=== PATIENT | male | born 1955 | race Caucasian/White ===

== ENCOUNTER 2016-03-08 | Outpatient (CLI) | payer MEDICARE | END 2016-03-08 08:09 | disposition critical access hospital (66) | CPT/HCPCS: A0425; A0427 ==

== ENCOUNTER 2016-03-08 08:36 | Emergency (ER) | payer MEDICARE ==
[2016-03-08] MEDS ORDERED: ONDANSETRON 4 MG/2 ML VIAL IVP STA ×2 (09:21→15:57)
[2016-03-08] MEDS ORDERED: SODIUM CHLORIDE 0.9% 1,000 ML IV ONE (09:21)
[2016-03-08] MEDS ORDERED: HYDROmorphone 1 MG/ML SYRINGE IVP STA ×2 (09:21→12:37)
[2016-03-08] MEDS ORDERED: ONDANSETRON 4 MG/2 ML VIAL ONE ×2 (09:33→16:02)
[2016-03-08] MEDS ORDERED: HYDROmorphone 1 MG/ML SYRINGE ONE ×2 (09:33→12:42)
[2016-03-08] MEDS ORDERED: cefTRIAXone 1 GM in SODIUM CHLORIDE 0.9% MINIBAG 100 ML IV STA (10:46)
[2016-03-08] MEDS ORDERED: cefTRIAXone 1 GM VIAL ONE (11:02)
[2016-03-08] MEDS ORDERED: IOPAMIDOL-300 100 ML VIAL IVP ONE (13:12)
== END 2016-03-08 16:20 | disposition home or self-care (01) ==
DX: J18.9 Pneumonia, unspecified organism (principal); H66.003 Acute suppurative otitis media without spontaneous rupture of ear drum, bilateral; I95.9 Hypotension, unspecified; E11.9 Type 2 diabetes mellitus without complications; J44.9 Chronic obstructive pulmonary disease, unspecified; I10 Essential (primary) hypertension; E78.5 Hyperlipidemia, unspecified; F17.200 Nicotine dependence, unspecified, uncomplicated; Z79.01 Long term (current) use of anticoagulants; Z79.4 Long term (current) use of insulin; Z86.711 Personal history of pulmonary embolism; Z86.718 Personal history of other venous thrombosis and embolism
CPT/HCPCS: 36415; 71275; 74176; 80053; 81003; 83605; 83690; 84484; 85025; 85610; 87040; 93005; 93010; 96361; 96374; 96375; 96376; 99285; J1170; Q9967

== ENCOUNTER 2016-03-10 08:37 | Outpatient (CLI) | payer MEDICARE | END 2016-03-10 08:38 | disposition home or self-care (01) | DX: I26.99 Other pulmonary embolism without acute cor pulmonale (principal); Z79.01 Long term (current) use of anticoagulants ==

== ENCOUNTER 2016-03-24 08:40 | Outpatient (CLI) | payer MEDICARE | END 2016-03-24 08:41 | disposition home or self-care (01) | DX: I26.99 Other pulmonary embolism without acute cor pulmonale (principal); Z79.01 Long term (current) use of anticoagulants ==

== ENCOUNTER 2016-03-31 08:36 | Outpatient (CLI) | payer MEDICARE | END 2016-03-31 08:37 | disposition home or self-care (01) | DX: I26.99 Other pulmonary embolism without acute cor pulmonale (principal); Z79.01 Long term (current) use of anticoagulants ==

== ENCOUNTER 2016-04-21 08:31 | Outpatient (CLI) | payer MEDICARE | END 2016-04-21 08:32 | disposition home or self-care (01) | DX: I26.99 Other pulmonary embolism without acute cor pulmonale (principal); Z79.01 Long term (current) use of anticoagulants ==

== ENCOUNTER 2016-05-05 08:45 | Outpatient (CLI) | payer MEDICARE | END 2016-05-05 08:46 | disposition home or self-care (01) | DX: I26.99 Other pulmonary embolism without acute cor pulmonale (principal); Z79.01 Long term (current) use of anticoagulants ==

== ENCOUNTER 2016-05-26 08:25 | Outpatient (CLI) | payer MEDICARE | END 2016-05-26 08:26 | disposition home or self-care (01) | DX: I26.99 Other pulmonary embolism without acute cor pulmonale (principal); Z79.01 Long term (current) use of anticoagulants ==

== ENCOUNTER 2016-06-02 08:41 | Outpatient (CLI) | payer MEDICARE | END 2016-06-02 08:42 | disposition home or self-care (01) | DX: I26.99 Other pulmonary embolism without acute cor pulmonale (principal); Z79.01 Long term (current) use of anticoagulants ==

== ENCOUNTER 2016-06-16 08:42 | Outpatient (CLI) | payer MEDICARE | END 2016-06-16 08:43 | disposition home or self-care (01) | DX: I26.99 Other pulmonary embolism without acute cor pulmonale (principal); Z79.01 Long term (current) use of anticoagulants ==

== ENCOUNTER 2016-07-14 08:44 | Outpatient (CLI) | payer MEDICARE | END 2016-07-14 08:45 | disposition home or self-care (01) | LOC: LAB.F 08:44 | PROVIDERS: ATTEND Family Medicine | DX: I26.99 Other pulmonary embolism without acute cor pulmonale (principal) | CPT/HCPCS: 85610 ==

== ENCOUNTER 2016-08-18 08:23 | Outpatient (CLI) | payer MEDICARE | END 2016-08-18 08:24 | disposition home or self-care (01) | LOC: LAB.F 08:23 | PROVIDERS: ATTEND Family Medicine | DX: I26.99 Other pulmonary embolism without acute cor pulmonale (principal) | CPT/HCPCS: 85610 ==

== ENCOUNTER 2016-09-23 07:27 | Outpatient (CLI) | payer MEDICARE | END 2016-09-23 07:28 | disposition home or self-care (01) | LOC: LAB.F 07:27 | PROVIDERS: ATTEND Family Medicine | DX: I26.99 Other pulmonary embolism without acute cor pulmonale (principal) | CPT/HCPCS: 85610 ==

== ENCOUNTER 2016-10-15 15:05 | Outpatient (CLI) | payer OTHER, MEDICARE ==
[2016-10-15] MEDS ORDERED: IOPAMIDOL-300 100 ML VIAL IVP ONE (16:27)
--- NOTE | 2016-10-16 10:50 | CT Report ---
CT ANGIOGRAM CHEST: 10/15/2016 CLINICAL INDICATION: COPD, pulmonary embolism. COMPARISON: 03/08/2016 TECHNIQUE: Axial CT images of the chest were obtained with 100 mL Isovue-300 intravenously in pulmon cecilio arterial phase of enhancement. Sagittal and coronal 3D reconstructions were performed. In accordance with CT protocol optimization, one or more of the following dose reduction techniques w ere utilized for this exam: automated exposure control, adjustment of mA and/or KV based on patient size, or use of iterative reconstructive technique. FINDINGS: The heart and great vessels demonstrate atherosclerotic calcifications. No hilar or media stinal lymphadenopathy is present. There is no evidence of pulmonary embolus. The lungs demonstrate emphysematous changes. There are multiple subcentimeter pulmonary nodules in the upper lobes, new f rom previous. These may be infectious in etiology. Followup CT following antibiotic therapy is cate mmended to evaluate for resolution. The previously noted nodule in the superior segment of the left lower lobe has resolved. Atelectasis in the lingula appears unchanged, and patchy bibasilar atelecta sis is now also present. No effusion or pneumothorax is seen. Limited evaluation of upper abdominal structures demonstrates normal adrenal glands. Osseous structures demonstrate degenerative changes. IMPRESSION: 1. NO EVIDENCE OF PULMONARY EMBOLUS. 2. MULTIPLE SMALL UPPER LOBE PULMONARY NODULES, NEW FROM PREVIOUS, WHICH MAY BE INFECTIOUS IN ETIOLO GY. RESOLUTION OF PREVIOUSLY SEEN LEFT LOWER LOBE PULMONARY NODULE. FOLLOWUP CT FOLLOWING ANTIBIOTI C THERAPY IS RECOMMENDED TO EVALUATE FOR RESOLUTION. JOB #: [id number] EXT JOB #:[id number]
== END 2016-10-15 15:06 | disposition home or self-care (01) ==
LOC: DI 15:05
PROVIDERS: ATTEND Physician Assistant
DX: J44.9 Chronic obstructive pulmonary disease, unspecified (principal); R91.8 Other nonspecific abnormal finding of lung field
CPT/HCPCS: 71275; Q9967

== ENCOUNTER 2016-10-28 08:33 | Outpatient (CLI) | payer OTHER, MEDICARE | END 2016-10-28 08:34 | disposition home or self-care (01) | LOC: LAB.F 08:33 | PROVIDERS: ATTEND Family Medicine | DX: I26.99 Other pulmonary embolism without acute cor pulmonale (principal); Z79.01 Long term (current) use of anticoagulants | CPT/HCPCS: 85610 ==

== ENCOUNTER 2016-12-01 07:10 | Outpatient (CLI) | payer OTHER, MEDICARE | END 2016-12-01 07:11 | disposition home or self-care (01) | LOC: LAB.F 07:10 | PROVIDERS: ATTEND Family Medicine | DX: I26.99 Other pulmonary embolism without acute cor pulmonale (principal); Z79.01 Long term (current) use of anticoagulants | CPT/HCPCS: 85610 ==

== ENCOUNTER 2016-12-11 08:38 | Outpatient (CLI) | payer OTHER, MEDICARE ==
[~2016-12-11 08:38] MED LIST: IOPAMIDOL-300 100 ML VIAL ONE
[2016-12-11] MEDS ORDERED: IOPAMIDOL-300 100 ML VIAL IVP ONE (09:46)
--- NOTE | 2016-12-11 12:22 | CT Report ---
CT CHEST WITHOUT CONTRAST: 12/11/2016 CLINICAL INDICATION: Followup parenchymal nodules from previous scan of 10/15/2016. TECHNIQUE: Axial CT images of the chest were obtained without intravenous contrast, due to inability to obtain intravenous access. In accordance with CT protocol optimization, one or more of the following dose reduction techniques w ere utilized for this exam: automated exposure control, adjustment of mA and/or KV based on patient size, or use of iterative reconstructive technique. COMPARISON: 10/15/2016, 03/08/2016 FINDINGS: The heart and great vessels demonstrate mild atherosclerotic calcifications. No hilar or mediastinal lymphadenopathy is present. There has been interval decrease in size of the largest of t he parenchymal nodules, with the largest in the right upper lobe now measuring 4 mm, and the largest in the left upper lobe now measuring 4 mm. There has, however, been a significant increase in the nu mber of parenchymal nodules bilaterally. Some of them appear to demonstrate central lucency, compati ble with cavitation or necrosis. No focal infiltrate, effusion, or pneumothorax is present. Limited evaluation of upper abdominal structures demonstrates normal adrenal glands. Osseous structures dem onstrate degenerative changes. IMPRESSION: INTERVAL INCREASE IN NUMBER OF BILATERAL PULMONARY NODULES, DESPITE INTERVAL DECREASE IN SIZE OF THE LARGEST NODULES PRESENT IN THE UPPER LOBES, NOW WITH SOME CENTRAL LUCENCY IN SOME OF THE NODULES. DIFFERENTIAL CONSIDERATIONS WOULD INCLUDE METASTATIC DISEASE AND SEPTIC EMBOLI FROM RIGHT- SIDED ENDOCARDITIS/VALVULAR DISEASE. CORRELATION WITH ECHOCARDIOGRAPHY AND EVALUATION FOR A PRIMARY MALIGNANCY IS RECOMMENDED. JOB #: [id number] EXT JOB #:[id number]
== END 2016-12-11 08:39 | disposition home or self-care (01) ==
LOC: DI 08:38
PROVIDERS: ATTEND Physician Assistant
DX: R91.8 Other nonspecific abnormal finding of lung field (principal)
CPT/HCPCS: 71250; Q9967

== ENCOUNTER 2017-02-02 08:55 | Outpatient (CLI) | payer MEDICARE, OTHER | END 2017-02-02 08:56 | disposition home or self-care (01) | LOC: LAB.F 08:55 | PROVIDERS: ATTEND Family Medicine | DX: I26.99 Other pulmonary embolism without acute cor pulmonale (principal); Z79.01 Long term (current) use of anticoagulants | CPT/HCPCS: 85610 ==

== ENCOUNTER 2017-02-03 17:50 | Outpatient (CLI) | payer MEDICARE | END 2017-02-03 17:51 | disposition critical access hospital (66) | LOC: EMS 17:50 | PROVIDERS: ATTEND Surgery | DX: R00.2 Palpitations (principal) | CPT/HCPCS: A0425; A0429 ==

== ENCOUNTER 2017-03-03 08:12 | Outpatient (CLI) | payer MEDICARE | END 2017-03-03 08:13 | disposition home or self-care (01) | LOC: LAB.F 08:12 | PROVIDERS: ATTEND Physician Assistant | DX: I26.99 Other pulmonary embolism without acute cor pulmonale (principal); Z79.01 Long term (current) use of anticoagulants | CPT/HCPCS: 85610 ==

== ENCOUNTER 2017-04-06 09:22 | Outpatient (CLI) | payer OTHER, MEDICARE | END 2017-04-06 09:23 | disposition home or self-care (01) | LOC: LAB.F 09:22 | PROVIDERS: ATTEND Physician Assistant | DX: I26.99 Other pulmonary embolism without acute cor pulmonale (principal); Z79.01 Long term (current) use of anticoagulants | CPT/HCPCS: 85610 ==

== ENCOUNTER 2017-04-27 10:18 | Outpatient (CLI) | payer OTHER, MEDICARE | END 2017-04-27 10:19 | disposition home or self-care (01) | LOC: SC 10:18 | PROVIDERS: ATTEND Internal Medicine Pulmonary Disease | DX: G47.30 Sleep apnea, unspecified (principal); G47.10 Hypersomnia, unspecified; R06.83 Snoring; G47.8 Other sleep disorders | CPT/HCPCS: 99203; 99212 ==

== ENCOUNTER 2017-05-04 09:15 | Outpatient (CLI) | payer OTHER, MEDICARE | END 2017-05-04 09:16 | disposition home or self-care (01) | LOC: LAB.F 09:15 | PROVIDERS: ATTEND Physician Assistant | DX: I26.99 Other pulmonary embolism without acute cor pulmonale (principal); Z79.01 Long term (current) use of anticoagulants | CPT/HCPCS: 85610 ==

== ENCOUNTER 2017-06-02 08:42 | Outpatient (CLI) | payer OTHER, MEDICARE | END 2017-06-02 08:43 | disposition home or self-care (01) | LOC: LAB.F 08:42 | PROVIDERS: ATTEND Physician Assistant | DX: I26.99 Other pulmonary embolism without acute cor pulmonale (principal); Z79.01 Long term (current) use of anticoagulants | CPT/HCPCS: 85610 ==

== ENCOUNTER 2017-06-15 19:53 | Outpatient (CLI) | payer OTHER, MEDICARE | END 2017-06-15 19:54 | disposition home or self-care (01) | LOC: SC 19:53 | PROVIDERS: ATTEND Internal Medicine Pulmonary Disease | DX: G47.8 Other sleep disorders (principal) | CPT/HCPCS: 95810 ==

== ENCOUNTER 2017-06-29 08:47 | Outpatient (CLI) | payer OTHER, MEDICARE | END 2017-06-29 08:48 | disposition home or self-care (01) | LOC: LAB.F 08:47 | PROVIDERS: ATTEND Physician Assistant | DX: I26.99 Other pulmonary embolism without acute cor pulmonale (principal); Z79.01 Long term (current) use of anticoagulants | CPT/HCPCS: 85610 ==

== ENCOUNTER 2017-08-03 08:48 | Outpatient (CLI) | payer MEDICARE | END 2017-08-03 08:49 | disposition home or self-care (01) | LOC: LAB.F 08:48 | PROVIDERS: ATTEND Physician Assistant | DX: I26.99 Other pulmonary embolism without acute cor pulmonale (principal); Z79.01 Long term (current) use of anticoagulants | CPT/HCPCS: 85610 ==

== ENCOUNTER 2017-08-11 08:54 | Outpatient (CLI) | payer OTHER, MEDICARE | END 2017-08-11 08:55 | disposition home or self-care (01) | LOC: SC 08:54 | PROVIDERS: ATTEND Nurse Practitioner Family | DX: R06.83 Snoring (principal); G47.00 Insomnia, unspecified | CPT/HCPCS: 99212; 99214 ==

== ENCOUNTER 2017-08-17 08:42 | Outpatient (CLI) | END 2017-08-17 08:43 | disposition home or self-care (01) ==

== ENCOUNTER 2017-09-14 09:18 | Outpatient (CLI) | payer MEDICARE | END 2017-09-14 09:19 | disposition home or self-care (01) | LOC: LAB.F 09:18 | PROVIDERS: ATTEND Physician Assistant | DX: I26.99 Other pulmonary embolism without acute cor pulmonale (principal); Z79.01 Long term (current) use of anticoagulants | CPT/HCPCS: 85610 ==

== ENCOUNTER 2017-09-27 11:17 | Outpatient (CLI) | payer MEDICARE | END 2017-09-27 11:18 | disposition home or self-care (01) | LOC: LAB.F 11:17 | PROVIDERS: ATTEND Physician Assistant | DX: I26.99 Other pulmonary embolism without acute cor pulmonale (principal); Z79.01 Long term (current) use of anticoagulants | CPT/HCPCS: 85610 ==

== ENCOUNTER 2017-10-19 12:01 | Outpatient (CLI) | payer MEDICARE ==
--- NOTE | 2017-10-19 14:55 | XRAY Report ---
Reason: L SHOULDER PAIN, DECREASE ROM, LOW BACK PAIN Procedure Date: 10/19/2017 Accession Number: [id number] / [id number] Procedure: XR - Lumbar Spine 2 View CPT Code: FULL RESULT: EXAM: LUMBOSACRAL SPINE RADIOGRAPHY EXAM DATE: 10/19/2017 12:56 PM. CLINICAL HISTORY: Lower back pain for about 2 months. COMPARISONS: None. TECHNIQUE: 3 views. FINDINGS: Alignment: Mild levoconvex lumbar scoliosis. Bones: Five [id number] lumbar vertebral bodies are present. No fractures or bone lesions. Disks: Normal. Disk heights are maintained. Facets: Severe facet arthropathy of L5. Sacroiliac Joints: Unremarkable. Soft Tissues: Abdominal atherosclerosis. IMPRESSION: Severe L5 facet arthropathy and otherwise mild degenerative changes of the lumbar spine. RADIA
--- NOTE | 2017-10-19 14:55 | XRAY Report ---
Reason: L SHOULDER PAIN, DECREASE ROM, LOW BACK PAIN Procedure Date: 10/19/2017 Accession Number: [id number] / [id number] Procedure: XR - Shoulder 3 View LT CPT Code: FULL RESULT: EXAM: LEFT SHOULDER RADIOGRAPHY EXAM DATE: 10/19/2017 12:57 PM. CLINICAL HISTORY: Left shoulder surgery 1983 due to multiple shoulder dislocations. The patient now has increasing shoulder and upper arm pain. COMPARISON: None. TECHNIQUE: 3 views. FINDINGS: Bones: Partially threaded screw in the inferior glenoid aspect of the scapula. No fracture is identified. Joints: The glenohumeral and acromioclavicular joints are within normal limits taking into account the previous surgery. Soft tissues: The visualized hemithorax is unremarkable. No soft tissue swelling. IMPRESSION: No fracture or dislocation and no excessive degenerative changes of the acromioclavicular joint. RADIA
--- NOTE | 2017-10-19 14:55 | XRAY Report ---
Reason: L SHOULDER PAIN, DECREASE ROM, LOW BACK PAIN Procedure Date: 10/19/2017 Accession Number: [id number] / [id number] Procedure: XR - Knee 3 View LT CPT Code: FULL RESULT: EXAM: LEFT KNEE RADIOGRAPHY EXAM DATE: 10/19/2017 12:56 PM. CLINICAL HISTORY: Chronic left knee pain. COMPARISON: None. TECHNIQUE: 3 views. FINDINGS: Bones: No fracture or aggressive osseous lesion. Joints: Normal. No effusion. No subluxations. Soft Tissues: Normal. No soft tissue swelling. IMPRESSION: Normal knee radiography. RADIA
== END 2017-10-19 12:02 | disposition home or self-care (01) ==
LOC: DI 12:01
PROVIDERS: ATTEND Physician Assistant
DX: M25.512 Pain in left shoulder (principal); M47.896 Other spondylosis, lumbar region; M25.562 Pain in left knee
CPT/HCPCS: 72100

== ENCOUNTER 2017-10-27 10:28 | Outpatient (CLI) | payer MEDICARE | END 2017-10-27 10:29 | disposition home or self-care (01) | LOC: LAB.F 10:28 | PROVIDERS: ATTEND Physician Assistant | DX: I26.99 Other pulmonary embolism without acute cor pulmonale (principal); Z79.01 Long term (current) use of anticoagulants | CPT/HCPCS: 85610 ==

== ENCOUNTER 2017-11-23 09:35 | Outpatient (CLI) | payer MEDICARE | END 2017-11-23 09:36 | disposition home or self-care (01) | LOC: LAB.F 09:35 | PROVIDERS: ATTEND Physician Assistant | DX: I26.99 Other pulmonary embolism without acute cor pulmonale (principal); Z79.01 Long term (current) use of anticoagulants | CPT/HCPCS: 85610 ==

== ENCOUNTER 2017-12-06 10:10 | Outpatient (CLI) | payer OTHER, MEDICARE | END 2017-12-06 10:11 | disposition home or self-care (01) | LOC: SC 10:10 | PROVIDERS: ATTEND Internal Medicine Pulmonary Disease | DX: R09.02 Hypoxemia (principal); G47.00 Insomnia, unspecified; J44.9 Chronic obstructive pulmonary disease, unspecified | CPT/HCPCS: 99212; 99213 ==

== ENCOUNTER 2018-01-04 09:04 | Outpatient (CLI) | payer OTHER, MEDICARE | END 2018-01-04 09:05 | disposition home or self-care (01) | LOC: LAB.F 09:04 | PROVIDERS: ATTEND Physician Assistant | DX: Z53.9 Procedure and treatment not carried out, unspecified reason (principal) ==

== ENCOUNTER 2018-01-25 10:45 | Outpatient (CLI) | payer OTHER, MEDICARE | END 2018-01-25 10:46 | disposition home or self-care (01) | LOC: LAB.F 10:45 | PROVIDERS: ATTEND Physician Assistant | DX: I26.99 Other pulmonary embolism without acute cor pulmonale (principal); Z79.01 Long term (current) use of anticoagulants | CPT/HCPCS: 85610 ==

== ENCOUNTER 2018-01-26 09:56 | Emergency (ER) | payer MEDICARE, OTHER ==
--- NOTE | 2018-01-26 10:18 | ED Physician Documentation ---
PD HPI CHEST PAIN - Stated complaint Stated Complaint: CHEST PAIN/LT ARM PX - Chief complaint Chief Complaint: Cardiac - History obtained from History obtained from: Patient, Family - History of Present Illness Timing - onset: How many days ago (2) Timing - onset during: Rest Timing - duration: Days (2) Timing - details: Gradual onset, Still present Pain level max: 8 Pain level now: 8 Quality: Pressure, Sharp Location: Left chest Radiation: Neck Improved by: Rest Worsened by: Exertion, Inspiration, Movement, Palpation, Position Associated symptoms: Shortness of air, Cough. No: Nausea, Vomiting Similar symptoms before: Diagnosis (PE and pneumonia) Recently seen: Not recently seen - Additional information Additional information: 62-year-old male with a history of pulmonary embolism and COPD has developed pain in his left upper chest that is worse with inspiration and with movement and he does have some headache on the left side of his face that seems to be related to these episodic increases in his pain. He reports that he has had some pain in his left arm for months and that this resolved 2 days ago and following that he developed pain in his chest wall. He has a prior history of DVT and pulmonary embolism and he had his most recent pulmonary embolism in 2014 and since that time he has been on Coumadin lifetime. He checked his INR recently was 2.2. He feels his symptoms are similar to what he has had previously with pulmonary embolism. Review of Systems Constitutional: reports: Fatigue. denies: Fever Eyes: denies: Decreased vision Ears: denies: Ear pain Nose: reports: Rhinorrhea / runny nose, Congestion Throat: denies: Sore throat Cardiac: reports: Chest pain / pressure. denies: Palpitations, Pedal edema, Calf pain Respiratory: reports: Dyspnea, Cough, Wheezing GI: reports: Abdominal Pain, Diarrhea. denies: Nausea, Vomiting : denies: Dysuria, Frequency PD PAST MEDICAL HISTORY - Past Medical History Cardiovascular: Hypertension, High cholesterol, Deep vein thrombosis, Pulmonary embolism Respiratory: COPD, Pneumonia, Sleep apnea Endocrine/Autoimmune: Type 2 diabetes GI: Diverticulitis Psych: Depression, Anxiety Musculoskeletal: Osteoarthritis - Past Surgical History Past Surgical History: Yes Ortho: Shoulder arthroplasty - Present Medications Home Medications: Ambulatory Orders Medication Instructions Recorded Confirmed Albuterol Sulfate [Proventil Hfa] 2 puffs IH QID PRN 05/02/13 02/03/17 Metoprolol Succinate [Toprol Xl] 25 mg PO BID 05/02/13 02/03/17 Zolpidem [Ambien] 10 mg PO HS PRN 05/06/13 02/03/17 Atorvastatin Calcium [Lipitor] 0 mg PO DAILY 10/21/13 02/03/17 Gabapentin [Neurontin] 2 tab TID 01/15/15 02/03/17 Warfarin [Coumadin] 5 mg PO DAILY #30 tablet 01/15/15 02/03/17 Diazepam 1 tab PO BID PRN 03/30/15 02/03/17 Insulin Detemir [Levemir Flextouch] 25 unit SQ DAILY 07/31/15 02/03/17 Hydrocodone/Acetaminophen [[place] 1 each PO QID PRN #15 tablet 08/01/15 02/03/17 7.5-325 Tablet] Azithromycin [Zithromax] 0 mg PO DAILY #6 tablet 01/26/18 Mometasone Furoate [Asmanex] 0 01/26/18 Tiotropium Mcbee [Spiriva] 0 01/26/18 - Allergies Allergies/Adverse Reactions: Allergies Allergy/AdvReac Type Severity Reaction Status Date / Time No Known Drug Allergies Allergy Verified 01/26/18 10:07 - Social History Does the pt smoke?: Yes Smoking Status: Current every day smoker Does the pt drink ETOH?: Yes Does the pt have substance abuse?: No - Immunizations Immunizations are current?: Yes - POLST Patient has POLST: No PD ED PE NORMAL - Vitals Vital signs reviewed: Yes (hypertensive) - General General: Alert and oriented X 3, No acute distress, Well developed/nourished - HEENT HEENT: Atraumatic, PERRL, EOMI, Other (both TM's are inflamed in the attic ) - Neck Neck: Supple, no meningeal sign, No bony TTP - Cardiac Cardiac: RRR, No murmur - Respiratory Respiratory: No respiratory distress, Clear bilaterally, Other (There is point tenderness to the anterior chest wall below the clavicle that reproduces the symptoms the patient is in the ED for. 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, No motor deficit, No sensory deficit, Normal speech Eye Opening: Spontaneous Motor: Obeys Commands Verbal: Oriented GCS Score: 15 - Psych Psych: Normal mood, Normal affect Results - Vitals Vitals: Vital Signs - 24 hr 01/26/18 01/26/18 01/26/18 10:04 10:26 12:38 Temperature 36.3 C L Heart Rate 74 73 70 Respiratory 24 16 16 Rate Blood Pressure 126/91 H 132/77 H 121/76 O2 Saturation 99 96 96 Oxygen O2 Source Room air - EKG (time done) 1002 Rate: Rate (enter#) (72) Rhythm: NSR, LAE Compare to prior EKG: Unchanged from prior EKG (SPT 02-03-2017 no sig change) Computer interpretation: Agree with computer - Labs Labs: Laboratory Tests 01/26/18 01/26/18 01/26/18 10:12 10:12 10:12 WBC 7.6 RBC 5.43 Hgb 17.5 Hct 51.3 MCV 94.3 H MCH 32.3 H MCHC 34.2 RDW 13.2 Plt Count 145 MPV 9.1 Neut # (Auto) 5.1 Lymph # (Auto) 1.9 [place] # (Auto) 0.4 Eos # (Auto) 0.2 Baso # (Auto) 0.0 Absolute Nucleated RBC 0.01 Nucleated RBC % 0.1 PT INR Sodium 138 Potassium 3.7 Chloride 99 L Carbon Dioxide 32 Anion Gap 7.0 BUN 9 Creatinine 0.7 Estimated GFR (MDRD) 114 Glucose 167 H Calcium 9.2 Total Bilirubin 0.9 AST 23 ALT 21 Alkaline Phosphatase 81 Troponin I < 0.04 Total Protein 7.6 Albumin 4.2 Globulin 3.4 Albumin/Globulin Ratio 1.2 Lipase 27 01/26/18 10:12 WBC RBC Hgb Hct MCV MCH MCHC RDW Plt Count MPV Neut # (Auto) Lymph # (Auto) [place] # (Auto) Eos # (Auto) Baso # (Auto) Absolute Nucleated RBC Nucleated RBC % PT 25.1 H INR 2.3 H Sodium Potassium Chloride Carbon Dioxide Anion Gap BUN Creatinine Estimated GFR (MDRD) Glucose Calcium Total Bilirubin AST ALT Alkaline Phosphatase Troponin I Total Protein Albumin Globulin Albumin/Globulin Ratio Lipase - Rads (name of study) 1 view chest Radiology: Prelim report reviewed (Impression: 1. No acute disease in the chest), EMP read indepedently, See rad report CT angio chest Radiology: Prelim report reviewed (Impression: 1. No pulmonary emboli. 2. Waxing and waning bilateral subcentimeter lung nodules 3. A 1.4 cm nonspecific spiculated lingular density could be infectious, inflammatory or malignant etiology. Lingular atelectasis and scarring also noted. Options to further excess include short-term follow-up, PET/CT, bronchoscopy and or tissue sampling.), EMP read indepedently, See rad report PD MEDICAL DECISION MAKING - ED course Complexity details: reviewed old records, reviewed results, re-evaluated patient, considered differential, d/w patient, d/w family ED course: 62-year-old male with left-sided chest pain appears to have infiltrate in the left chest on CT Ila of the chest. He does have some nodules as well and this will need close follow-up. He is administered Rocephin here in the emergency department we will place him on a course of antibiotic and have him follow-up with his primary for reimaging. Departure - Departure Disposition: 01 Home, Self Care Clinical Impression: Pneumonia Qualifiers: Pneumonia type: due to unspecified organism Laterality: left Lung location: lower lobe of lung Qualified Code(s): J18.1 - Lobar pneumonia, unspecified organism Condition: Stable Instructions: ED Pneumonia Adult Follow-Up: Dilma Summers PA [Primary Care Provider] - Prescriptions: Azithromycin [Zithromax] 0 mg PO DAILY #6 tablet Comments: Today we have placed you on an antibiotic and because you are on Coumadin you will need to have your INR rechecked in about 3 days. In addition you will need follow-up imaging done to be certain the infection has cleared and that there is not another process ongoing.
[2018-01-26 10:29] LABS: BASOPHILS % (AUTO) 0.6 %; EOSINOPHILS # (AUTO) 0.2 10^3/uL (0.0-0.7); EOSINOPHILS % (AUTO) 2.4 %; HGB - HEMOGLOBIN 17.5 g/dL (14.0-18.0); LYMPHOCYTES # (AUTO) 1.9 10^3/uL (1.5-3.5); LYMPHOCYTES % (AUTO) 25.3 %; MEAN CORPUSCULAR HEMOGLOBIN 32.3 pg (27.0-31.0); MEAN CORPUSCULAR HGB CONC 34.2 g/dL (32.0-36.0); MEAN CORPUSCULAR VOLUME 94.3 fL (80.0-94.0); MEAN PLATELET VOLUME 9.1 fL (7.4-11.4); MONOCYTES # (AUTO) 0.4 10^3/uL (0.0-1.0); MONOCYTES % (AUTO) 5.5 %; NEUTROPHILS # (AUTO) 5.1 10^3/uL (1.5-6.6); NEUTROPHILS % (AUTO) 66.2 %; PLT - PLATELET COUNT 145 10^3/uL (130-450); RED BLOOD COUNT 5.43 10^6/uL (4.70-6.10); RED CELL DISTRIBUTION WIDTH 13.2 % (12.0-15.0); WHITE BLOOD COUNT 7.6 x10^3/uL (4.8-10.8)
[2018-01-26 10:43] LABS: ALBUMIN 4.2 g/dL (3.2-5.5); ALBUMIN/GLOBULIN RATIO 1.2 (1.0-2.2); BILIRUBIN,TOTAL 0.9 mg/dL (0.2-1.0); CALCIUM 9.2 mg/dL (8.5-10.3); CREATININE 0.7 mg/dL (0.6-1.2); TOTAL PROTEIN 7.6 g/dL (6.7-8.2)
--- NOTE | 2018-01-26 10:50 | XRAY Report ---
Reason: chest pain Procedure Date: 01/26/2018 Accession Number: [id number] / [id number] Procedure: XR - Chest 1 View X-Ray CPT Code: 21026 FULL RESULT: EXAM: CHEST RADIOGRAPHY EXAM DATE: 01/26/2018 10:20 AM. CLINICAL HISTORY: Chest pain. COMPARISON: 02/03/2017. TECHNIQUE: 1 view. FINDINGS: Lungs/Pleura: Linear left mid and lower lung scar/atelectasis. No consolidation. No vascular congestion. No pneumothorax. Mediastinum: Heart size is normal. Aorta is mildly tortuous. Other: None. IMPRESSION: 1. No acute disease in the chest. RADIA
[2018-01-26] MEDS ORDERED: KETOROLAC 60 MG/2 ML VIAL IVP STA (11:06)
[2018-01-26] MEDS ORDERED: DEXAMETHASONE 10 MG/ML VIAL IVP STA (11:06)
[2018-01-26 11:19] LABS: INR 2.3 (0.8-1.2); PT - PROTHROMBIN TIME 25.1 secs (9.9-12.6)
[2018-01-26] MEDS ORDERED: IOVERSOL 320 100 ML VIAL IVP ONE ×2 (11:51→13:19)
[2018-01-26] MEDS ORDERED: cefTRIAXone 1 GM in SODIUM CHLORIDE 0.9% MINIBAG 100 ML IV STA (12:52)
--- NOTE | 2018-01-26 12:55 | CT Report ---
Reason: Left sided chest pain Procedure Date: 01/26/2018 Accession Number: [id number] / [id number] Procedure: CT - Chest Angio (PE) CPT Code: FULL RESULT: EXAM: CT ANGIOGRAM CHEST EXAM DATE: 01/26/2018 12:15 PM. CLINICAL HISTORY: Left sided chest pain. COMPARISON: CHEST W/ 12/11/2016 9:25 AM CHEST ANGIO 10/15/2016 4:20 PM. TECHNIQUE: Routine helical imaging was performed through the chest in the pulmonary arterial phase. IV Contrast: ISOVUE 320 72mL. Reconstructions: Coronal 3-D MIP reconstructions.Sagittal and coronal. In accordance with CT protocol optimization, one or more of the following dose reduction techniques were utilized for this exam: automated exposure control, adjustment of mA and/or KV based on patient size, or use of iterative reconstructive technique. FINDINGS: Pulmonary Arteries: Diagnostic quality: Adequate through the segmental arteries. No evidence for acute or chronic pulmonary emboli. RV/LV is within normal limits. There is no interventricular septal bowing. There is no reflux of contrast material in the IVC. Lungs/Pleura: 1.4 x 1.3 x 1.4 cm spiculated nodular density within lingula on series 5 image 85. Lingular atelectasis. Multiple scattered subcentimeter bilateral lung nodules. A 6 mm superior segment left lower lobe lung nodule on series 5 image 40 is seen today. Previously, a tiny 2 mm nodule was present in this region. On prior CT 12/11/2016, a 6 mm superior segment right lower lobe lung nodule was present, however on today's exam nodules in this region measure up to 4 mm. Interval decrease in size. 6 mm lateral segment right middle lobe nodule near minor fissure on series 5 image 75 previously measured 3 mm. Calcified anterior left upper lobe granuloma. Mediastinum: Normal. No cardiac enlargement or adenopathy. Thoracic Aorta: Unremarkable. Upper Abdomen: Unremarkable. Other: None. IMPRESSION: 1. No pulmonary emboli. 2. Waxing and waning bilateral subcentimeter lung nodules. 3. A 1.4 cm nonspecific, spiculated lingular density could have infectious, inflammatory or malignant etiology. Lingular atelectasis and scarring also noted. Options to further assess include short-term follow-up, PET CT, bronchoscopy and/or tissue sampling. RADIA
[2018-01-26 13:29] VITALS: BP 131/84
== END 2018-01-26 13:34 | disposition home or self-care (01) ==
LOC: ED 09:56
DX: J18.1 Lobar pneumonia, unspecified organism (principal); I10 Essential (primary) hypertension; Z86.711 Personal history of pulmonary embolism; Z86.718 Personal history of other venous thrombosis and embolism; Z79.01 Long term (current) use of anticoagulants; E11.9 Type 2 diabetes mellitus without complications; E78.00 Pure hypercholesterolemia, unspecified; F17.200 Nicotine dependence, unspecified, uncomplicated
CPT/HCPCS: 36415; 71045; 71275; 80053; 83690; 84484; 85025; 85610; 93005; 96365; 96375; 99284; Q9967

== ENCOUNTER 2018-01-31 09:40 | Outpatient (CLI) | payer MEDICARE | END 2018-01-31 09:41 | disposition home or self-care (01) | LOC: LAB.F 09:40 | PROVIDERS: ATTEND Family Medicine | DX: I26.99 Other pulmonary embolism without acute cor pulmonale (principal); Z79.01 Long term (current) use of anticoagulants | CPT/HCPCS: 85610 ==

== ENCOUNTER 2018-03-01 09:40 | Outpatient (CLI) | payer MEDICARE | END 2018-03-01 09:41 | disposition home or self-care (01) | LOC: LAB.F 09:40 | PROVIDERS: ATTEND Physician Assistant | DX: I26.99 Other pulmonary embolism without acute cor pulmonale (principal); Z79.01 Long term (current) use of anticoagulants | CPT/HCPCS: 85610 ==

== ENCOUNTER 2018-03-08 09:51 | Outpatient (CLI) | payer MEDICARE | END 2018-03-08 09:52 | disposition home or self-care (01) | LOC: LAB.F 09:51 | PROVIDERS: ATTEND Family Medicine | DX: I26.99 Other pulmonary embolism without acute cor pulmonale (principal); Z79.01 Long term (current) use of anticoagulants | CPT/HCPCS: 85610 ==

== ENCOUNTER 2018-03-15 14:22 | Outpatient (CLI) | payer MEDICARE | END 2018-03-15 14:23 | disposition home or self-care (01) | LOC: LAB.F 14:22 | PROVIDERS: ATTEND Physician Assistant | DX: I26.99 Other pulmonary embolism without acute cor pulmonale (principal); Z79.01 Long term (current) use of anticoagulants | CPT/HCPCS: 85610 ==

== ENCOUNTER 2018-03-18 11:45 | Outpatient (CLI) | payer MEDICARE ==
[2018-03-18 12:20] LABS: CREATININE 0.7 mg/dL (0.6-1.2)
[2018-03-18] MEDS ORDERED: IOVERSOL 320 100 ML VIAL IVP ONE ×2 (13:19→14:28)
--- NOTE | 2018-03-18 15:28 | CT Report ---
Reason: SOLITARY PULMONARY NODULE Procedure Date: 03/18/2018 Accession Number: [id number] / [id number] Procedure: CT - Chest W/ CPT Code: FULL RESULT: EXAM: CT CHEST EXAM DATE: 03/18/2018 01:38 PM. CLINICAL HISTORY: Solitary pulmonary nodule. COMPARISONS: Chest angiogram 01/26/2018 12:03 PM. TECHNIQUE: Routine helical CT imaging was performed through the chest. IV contrast: 80 mL Optiray 320. Reconstructions: Coronal and sagittal. In accordance with CT protocol optimization, one or more of the following dose reduction techniques were utilized for this exam: automated exposure control, adjustment of mA and/or KV based on patient size, or use of iterative reconstructive technique. FINDINGS: Lungs/Pleura: Nodular consolidation in the lingula which measures 1.7 x 1.3 x 2.3 cm on today's exam persists, image 22 series 6 and image 41 series 4. Similar peripheral consolidation is also seen in the right middle lobe on image 25 series 6, 1.5 x 1.0 x 1.2 cm, new finding. There are innumerable other bilateral nodules some of which are spiculated others well-rounded. Notably, a small right upper lobe nodule on image 31 series 4 demonstrates central cavitation, 6 mm. Mediastinum: Calcifications within mediastinum likely represent prior granulomatous disease. No adenopathy or masses. The heart and great vessels are normal. Bones: Unremarkable. Visualized Abdomen: Unremarkable. Other: None. IMPRESSION: Innumerable bilateral pulmonary nodules at least 1 of which demonstrated cavitation. Recommend pulmonology referral with consideration for tissue sampling and broad differential diagnosis to include inflammatory etiologies such as the entity formally known as Mario's granulomatosis. RADIA
== END 2018-03-18 11:46 | disposition home or self-care (01) ==
LOC: LAB 11:45
PROVIDERS: ATTEND Physician Assistant
DX: J98.4 Other disorders of lung (principal); R91.8 Other nonspecific abnormal finding of lung field; I10 Essential (primary) hypertension
CPT/HCPCS: 36415; 71260; 82565; Q9967

== ENCOUNTER 2018-03-22 09:22 | Outpatient (CLI) | payer MEDICARE | END 2018-03-22 09:23 | disposition home or self-care (01) | LOC: LAB.F 09:22 | PROVIDERS: ATTEND Physician Assistant | DX: I26.99 Other pulmonary embolism without acute cor pulmonale (principal); Z79.01 Long term (current) use of anticoagulants | CPT/HCPCS: 85610 ==

== ENCOUNTER 2018-04-07 08:54 | Outpatient (CLI) | payer MEDICARE | END 2018-04-07 08:55 | disposition home or self-care (01) | LOC: LAB.F 08:54 | PROVIDERS: ATTEND Physician Assistant | DX: I26.99 Other pulmonary embolism without acute cor pulmonale (principal); Z79.01 Long term (current) use of anticoagulants | CPT/HCPCS: 85610 ==

== ENCOUNTER 2018-04-15 09:52 | Outpatient (CLI) | payer MEDICARE ==
--- NOTE | 2018-04-15 12:54 | Ultrasound Report ---
Reason: NICOTINE DEPENDENCE, UNSPECIFIED, UNCOMPLICATED Procedure Date: 04/15/2018 Accession Number: [id number] / [id number] Procedure: US - Aorta Screening CPT Code: FULL RESULT: EXAM: AORTIC DOPPLER ULTRASOUND EXAM DATE: 04/15/2018 10:37 AM. CLINICAL HISTORY: NICOTINE DEPENDENCE, UNSPECIFIED, UNCOMPLICATED. COMPARISON: None. TECHNIQUE: Real-time sonographic imaging of retroperitoneal vascular structures, including color-flow, Doppler flow and spectral analysis was performed by the hog ringer. Multiple registration representative static images were saved for review. FINDINGS: Limited examination due to patient body habitus. Aorta: The abdominal aorta was adequately visualized. No evidence for abdominal aortic aneurysm. Aorta: Proximal: Sagittal AP: 1.4 cm. Mid: Transverse: 1.6 x 1.7 cm. Distal: Transverse: 1.7 x 1.9 cm. Caliber WNL: Yes. Iliacs: Right Iliac: Transverse: 1.0 x 1.0 cm. Left Iliac: Transverse: 1.0 x 1.0 cm. Iliac Vessels: The visualized proximal common iliac arteries are normal in caliber. Other: None. IMPRESSION: Normal. No abdominal aortic aneurysm. RADIA
== END 2018-04-15 09:53 | disposition home or self-care (01) ==
LOC: DI 09:52
PROVIDERS: ATTEND Physician Assistant
DX: Z13.6 Encounter for screening for cardiovascular disorders (principal); F17.200 Nicotine dependence, unspecified, uncomplicated
CPT/HCPCS: 76706

== ENCOUNTER 2018-06-06 11:44 | Outpatient (CLI) | payer MEDICARE | END 2018-06-06 11:45 | disposition home or self-care (01) | LOC: LAB.F 11:44 | PROVIDERS: ATTEND Family Medicine | DX: I26.99 Other pulmonary embolism without acute cor pulmonale (principal); Z79.01 Long term (current) use of anticoagulants | CPT/HCPCS: 85610 ==

== ENCOUNTER 2018-06-13 11:00 | Outpatient (CLI) | payer MEDICARE | END 2018-06-13 11:01 | disposition home or self-care (01) | LOC: LAB.F 11:00 | PROVIDERS: ATTEND Physician Assistant | DX: I26.99 Other pulmonary embolism without acute cor pulmonale (principal); Z79.01 Long term (current) use of anticoagulants | CPT/HCPCS: 85610 ==

== ENCOUNTER 2018-06-27 09:00 | Outpatient (CLI) | payer MEDICARE | END 2018-06-27 09:01 | disposition home or self-care (01) | LOC: LAB.F 09:00 | PROVIDERS: ATTEND Physician Assistant | DX: I26.99 Other pulmonary embolism without acute cor pulmonale (principal); Z79.01 Long term (current) use of anticoagulants | CPT/HCPCS: 85610 ==

== ENCOUNTER 2018-07-26 09:20 | Outpatient (CLI) | payer MEDICARE | END 2018-07-26 09:21 | disposition home or self-care (01) | LOC: LAB.F 09:20 | PROVIDERS: ATTEND Family Medicine | DX: I26.99 Other pulmonary embolism without acute cor pulmonale (principal); Z79.01 Long term (current) use of anticoagulants | CPT/HCPCS: 85610 ==

== ENCOUNTER 2018-08-02 11:41 | Outpatient (CLI) | payer MEDICARE ==
[2018-08-02] MEDS ORDERED: IOVERSOL 320 100 ML VIAL IVP ONE ×2 (11:59→13:25)
--- NOTE | 2018-08-02 13:20 | CT Report ---
Reason: LUNG NODULE Procedure Date: 08/02/2018 Accession Number: [id number] / [id number] Procedure: CT - CHEST W CPT Code: FULL RESULT: EXAM: CT CHEST EXAM DATE: 08/02/2018 12:16 PM. CLINICAL HISTORY: Follow-up bilateral pulmonary nodules. COMPARISONS: CHEST W/ 03/18/2018 1:38 PM. TECHNIQUE: Routine helical CT imaging was performed through the chest. IV contrast: None. Reconstructions: Coronal and sagittal. In accordance with CT protocol optimization, one or more of the following dose reduction techniques were utilized for this exam: automated exposure control, adjustment of mA and/or KV based on patient size, or use of iterative reconstructive technique. FINDINGS: Lungs/Pleura: Significant interval improvement compared to the prior exam. There is been interval resolution of the multiple tiny right lower lobe pulmonary nodules. Redemonstration of nonneoplastic pleural scarring of the minor fissure. Interval improvement in the inferior lingular parenchymal scarring. Interval improvement in the medial segment right middle lobe consolidation. No new lesions. Mediastinum: Scattered mediastinal calcifications from old granulomatous disease. No adenopathy or masses. The heart and great vessels are normal. Bones: Unremarkable. Visualized Abdomen: Unremarkable. Other: None. IMPRESSION: 1. Significant interval improvement compared to prior examination with resolution of most of the tiny pulmonary nodular densities, especially in the right lower lobe, presumably infectious or inflammatory. 2. Interval improvement in the inferior lingular parenchymal scarring and in the medial segment right middle lobe consolidation. 3. No suspicious mass or pathologic adenopathy. RADIA
== END 2018-08-02 11:42 | disposition home or self-care (01) ==
LOC: DI 11:41
PROVIDERS: ATTEND Student in an Organized Health Care Education/Training Program
DX: R91.1 Solitary pulmonary nodule (principal)
CPT/HCPCS: 71260; Q9967

== ENCOUNTER 2018-08-23 08:40 | Outpatient (CLI) | payer MEDICARE | END 2018-08-23 08:41 | disposition home or self-care (01) | LOC: LAB.S 08:40 | PROVIDERS: ATTEND Family Medicine | DX: I26.99 Other pulmonary embolism without acute cor pulmonale (principal); Z79.01 Long term (current) use of anticoagulants | CPT/HCPCS: 85610 ==

== ENCOUNTER 2018-10-04 09:09 | Outpatient (CLI) | payer MEDICARE | END 2018-10-04 09:10 | disposition home or self-care (01) | LOC: LAB.S 09:09 | PROVIDERS: ATTEND Physician Assistant | DX: I26.99 Other pulmonary embolism without acute cor pulmonale (principal); Z79.01 Long term (current) use of anticoagulants | CPT/HCPCS: 85610 ==

== ENCOUNTER 2018-10-16 10:05 | Outpatient (CLI) | payer MEDICARE | END 2018-10-16 10:06 | disposition critical access hospital (66) | LOC: EMS 10:05 | PROVIDERS: ATTEND Surgery | DX: S01.81XA Laceration without foreign body of other part of head, initial encounter (principal); W01.0XXA Fall on same level from slipping, tripping and stumbling without subsequent striking against object, initial encounter; Y93.E1 Activity, personal bathing and showering; Y92.002 Bathroom of unspecified non-institutional (private) residence as the place of occurrence of the external cause; Z79.01 Long term (current) use of anticoagulants | CPT/HCPCS: A0425; A0429 ==

== ENCOUNTER 2018-10-16 10:39 | Emergency (ER) | payer MEDICARE ==
[2018-10-16] MEDS ORDERED: fentaNYL 100 MCG/2 ML VIAL IVP STA (10:51)
--- NOTE | 2018-10-16 10:56 | ED Physician Documentation ---
PD HPI Fall - Stated complaint Stated Complaint: HEAD LAC/ FALL - Chief complaint Chief Complaint: Laceration - History obtained from History obtained from: Patient, EMS - History of Present Illness Mechanism of injury: Tripped Fall distance: Standing position Where injury occurred: Home Timing - onset: How many hours ago (Less than one hour captain waiter/waitress.) Injury(ies) location: Head, Left Uppper Extremity Quality of pain: Pain Contributing factors: Anticoagulated Similar symptoms before: Has not had sx before - Additional information Additional information: The patient is a 63-year-old male with history of DVT, PE x2, and COPD, who presents via ambulance after tripping and falling when hurrying to answer his [employer] telephone this morning. He banged his forehead against the door jam, linares ffering a laceration to his forehead. He denies loss of consciousness. He denies nausea or vomiting. He has been ambulatory since the incident occurred. He does report headache. He is treated with warfarin for his history of PE's. He believes his tetanus status is up-to-date, but is not certain. Review of Systems Constitutional: denies: Fever Eyes: denies: Decreased vision Ears: denies: Tinnitus/ringing Nose: denies: Congestion Throat: denies: Sore throat Cardiac: denies: Chest pain / pressure, Palpitations Respiratory: denies: Dyspnea, Cough GI: denies: Abdominal Pain, Nausea, Vomiting : denies: Dysuria, Incontinent Skin: reports: Laceration (s) (forehead) Musculoskeletal: reports: Joint pain (left shoulder). denies: Neck pain Neurologic: reports: Headache, Head injury. denies: Focal weakness, Numbness, LOC PD PAST MEDICAL HISTORY - Past Medical History Cardiovascular: Hypertension, High cholesterol, Deep vein thrombosis, Pulmonary embolism Respiratory: COPD, Pneumonia, Sleep apnea Endocrine/Autoimmune: Type 2 diabetes GI: Diverticulitis Psych: Depression, Anxiety Musculoskeletal: Osteoarthritis - Past Surgical History Past Surgical History: Yes Ortho: Shoulder arthroplasty - Present Medications Home Medications: Ambulatory Orders Medication Instructions Recorded Confirmed Albuterol Sulfate [Proventil Hfa] 2 puffs IH QID PRN 05/02/13 02/03/17 Metoprolol Succinate [Toprol Xl] 25 mg PO BID 05/02/13 02/03/17 Zolpidem [Ambien] 10 mg PO HS PRN 05/06/13 02/03/17 Atorvastatin Calcium [Lipitor] 0 mg PO DAILY 10/21/13 02/03/17 Gabapentin [Neurontin] 2 tab TID 01/15/15 02/03/17 Warfarin [Coumadin] 5 mg PO DAILY #30 tablet 01/15/15 02/03/17 Diazepam 1 tab PO BID PRN 03/30/15 02/03/17 Insulin Detemir [Levemir Flextouch] 25 unit SQ DAILY 07/31/15 02/03/17 Hydrocodone/Acetaminophen [[place] 1 each PO QID PRN #15 tablet 08/01/15 02/03/17 7.5-325 Tablet] Azithromycin [Zithromax] 0 mg PO DAILY #6 tablet 01/26/18 Mometasone Furoate [Asmanex] 0 01/26/18 Tiotropium [place] [Spiriva] 0 01/26/18 Oxycodone HCl/Acetaminophen 1 - 2 each PO Q6H PRN #20 tablet 10/16/18 [Percocet 5-325 mg Tablet] - Allergies Allergies/Adverse Reactions: Allergies Allergy/AdvReac Type Severity Reaction Status Date / Time No Known Drug Allergies Allergy Verified 10/16/18 10:44 - Social History Does the pt smoke?: Yes Smoking Status: Current every day smoker Does the pt drink ETOH?: Yes Does the pt have substance abuse?: No - Immunizations Immunizations are current?: Yes - POLST Patient has POLST: No PD ED PE NORMAL - Vitals Vital signs reviewed: Yes (normal) - General General: Alert and oriented X 3, Well developed/nourished - HEENT HEENT: PERRL, EOMI, Pharynx benign, Other (4 cm vertical laceration of the mid forehead/frontal scalp.) - Neck Neck: No bony TTP, Other (Full cervical range of motion without tenderness.) - Cardiac Cardiac: RRR - Respiratory Respiratory: No respiratory distress, Other (Faint and expiratory wheezes at the bases bilaterally.) - Abdomen Abdomen: Soft, Non tender, Other (Rotund abdomen.) - Back Back: No CVA TTP, No spinal TTP - Derm Derm: No rash - Extremities Extremities: No edema, No calf tenderness / cord, Other (There is tenderness to palpation over the anterior aspect of the left shoulder, exacerbated with range of motion. Distal neurovascular is intact.) - Neuro Neuro: Alert and oriented X 3, No motor deficit, No sensory deficit, Normal speech Eye Opening: Spontaneous Motor: Obeys Commands Verbal: Oriented GCS Score: 15 Results - Vitals Vitals: Vital Signs - 24 hr 10/16/18 10/16/18 10:40 12:51 Temperature 37.0 C Heart Rate 78 65 Respiratory 18 19 Rate Blood Pressure 126/80 129/77 O2 Saturation 95 98 Oxygen O2 Source Room air - Labs Labs: Laboratory Tests 10/16/18 10/16/18 10/16/18 10:52 10:53 10:53 WBC 8.4 RBC 4.89 Hgb 16.0 Hct 47.6 MCV 97.3 H MCH 32.7 H MCHC 33.6 RDW 12.9 Plt Count 149 MPV 10.9 Neut # (Auto) 5.7 Lymph # (Auto) 1.9 [place] # (Auto) 0.6 Eos # (Auto) 0.1 Baso # (Auto) 0.0 Absolute Nucleated RBC 0.00 Nucleated RBC % 0.0 PT 26.9 H INR 2.4 H Sodium 140 Potassium 4.1 Chloride 102 Carbon Dioxide 30 Anion Gap 8.0 BUN 12 Creatinine 0.9 Estimated GFR (MDRD) 85 L Glucose 145 H Calcium 9.1 Total Bilirubin 0.6 AST 16 ALT 19 Alkaline Phosphatase 59 Total Protein 6.6 L Albumin 3.7 Globulin 2.9 Albumin/Globulin Ratio 1.3 Lipase 24 - Rads (name of study) head CT Radiology: Prelim report reviewed, EMP read contemporaneously, See rad report (No intracranial hemorrhage. Minimal chronic small vessel ischemic change in the bilateral cerebral white matter, as before.) right shoulder Radiology: Prelim report reviewed, EMP read contemporaneously, See rad report (1) Nondisplaced acute fracture of the greater tuberosity of the left humerus. Such a fracture can be seen with a fall directly onto the shoulder. 2) No definite humeral neck fracture is identified, although the humeral neck is partially obscured by prominent humeral head osteophyte formation. If the fall was not directly onto the shoulder, further assessment could be performed with C T. 3) Moderate chronic left shoulder arthropathy with joint space narrowing. There is a lag screw in the anterior left glenoid margin, as before.) Procedures - Laceration (location) forehead Length in cm: 4 Wound type: Linear Neurovascular status: Sensory intact, Vascular intact Anesthesia: Lidocaine 1% with epi Wound Preparation: Hibiclens, Irrigated copiously NS, Wound explored, To the base. No: FB identified Skin layer closure: Nylon, Interrupted, Size #-0 - enter number (5), Sutures - enter # (6) Other: Patient tolerated well, No complications, Neurovascular intact, Dressing applied, Tetanus UTD Complexity: Simple PD MEDICAL DECISION MAKING - ED course Complexity details: reviewed results, re-evaluated patient, considered differential, d/w patient, d/w family ED course: The patient's presentation is significant for a fall with 4 cm laceration to his forehead, and fracture of the greater tuberosity of his left proximal humerus. Head CT reveals no evidence of intracranial hemorrhage. His INR is in the therapeutic range at 2.4. Treatment in the emergency department included administration of fentanyl 100 mcg IV. This improved the patient's pain. A left arm sling was applied. The forehead wound was thoroughly irrigated after local anesthetic using 1% lidocaine with epinephrine. It was repaired with 5-0 nylon simple sutures. Antibiotic ointment and gauze dressing was applied. A tablet of oxycodone was administered prior to discharge. I discussed with him and his the expected course of injury, symptomatic treatment and outpatient follow-up, as well as potentially worrisome signs or symptoms that should prompt reevaluation in the emergency department. He is being discharged with prescription for Percocet, 20 tablets. Departure - Departure Disposition: 01 Home, Self Care Clinical Impression: Fracture of greater tuberosity of left humerus Qualifiers: Encounter type: initial encounter Fracture type: closed Fracture alignment: nondisplaced Qualified Code(s): S42.255A - Nondisplaced fracture of greater tuberosity of left humerus, initial encounter for closed fracture Forehead laceration Qualifiers: Encounter type: initial encounter Qualified Code(s): S01.81XA - Laceration without foreign body of other part of head, initial encounter Fall Qualifiers: Encounter type: initial encounter Qualified Code(s): W19.XXXA - Unspecified fall, initial encounter Condition: Stable Instructions: ED Laceration Scalp Stitch Or Stap, ED Fx Shoulder Follow-Up: Dilma Summers PA [Provider Admit Priv/Credential] - Prescriptions: Oxycodone HCl/Acetaminophen [Percocet 5-325 mg Tablet] 1 - 2 each PO Q6H PRN #20 tablet PRN Reason: pain Comments: You can apply ice pack to your left shoulder intermittently for the next 3 or 4 days to help decrease swelling and inflammation. You can use ibuprofen, up to 800 mg 3 times daily for anti-inflammatory effect. You can use Percocet as prescribed if needed for pain. Keep the wound clean, and apply antibiotic ointment daily. Follow-up for suture removal in about 12 days. Return to the emergency department if you develop any sign of infection, or otherwise worsening symptoms. Discharge Date/Time: 10/16/18 12:51
[2018-10-16 11:49] LABS: BASOPHILS % (AUTO) 0.5 %; EOSINOPHILS # (AUTO) 0.1 10^3/uL (0.0-0.7); EOSINOPHILS % (AUTO) 1.2 %; LYMPHOCYTES # (AUTO) 1.9 10^3/uL (1.5-3.5); LYMPHOCYTES % (AUTO) 23.1 %; MEAN CORPUSCULAR HEMOGLOBIN 32.7 pg (27.0-31.0); MEAN CORPUSCULAR HGB CONC 33.6 g/dL (32.0-36.0); MEAN CORPUSCULAR VOLUME 97.3 fL (80.0-94.0); MEAN PLATELET VOLUME 10.9 fL (7.4-11.4); MONOCYTES # (AUTO) 0.6 10^3/uL (0.0-1.0); MONOCYTES % (AUTO) 6.6 %; NEUTROPHILS # (AUTO) 5.7 10^3/uL (1.5-6.6); NEUTROPHILS % (AUTO) 67.8 %; PLT - PLATELET COUNT 149 10^3/uL (130-450); RED BLOOD COUNT 4.89 10^6/uL (4.70-6.10); RED CELL DISTRIBUTION WIDTH 12.9 % (12.0-15.0); WHITE BLOOD COUNT 8.4 x10^3/uL (4.8-10.8)
--- NOTE | 2018-10-16 11:49 | CT Report ---
Reason: Head injury, on Coumadin. Procedure Date: 10/16/2018 Accession Number: [id number] / [id number] Procedure: CT - HEAD WO CPT Code: FULL RESULT: EXAM: CT HEAD EXAM DATE: 10/16/2018 11:05 AM. CLINICAL HISTORY: Head injury, on Coumadin. COMPARISON: HEAD W/O 11/21/2015 10:44 AM. TECHNIQUE: Multiaxial CT images were obtained from the foramen magnum to the vertex. Reformats: Sagittal and coronal. IV contrast: None. In accordance with CT protocol optimization, one or more of the following dose reduction techniques were utilized for this exam: automated exposure control, adjustment of mA and/or KV based on patient size, or use of iterative reconstructive technique. FINDINGS: Parenchyma: Minimal patchy hypodensity in the bilateral cerebral white matter as before consistent with minimal chronic small vessel ischemic change. No high-density lesions. No mass-effect. Wu-white differentiation is intact. Extraaxial Spaces: Normal for age. No subdural or epidural collections identified. Ventricles: Normal in size and position. Sinuses and Orbits: Incompletely visualized approximately 2 cm mucous retention cyst at the inferior aspect of the right maxillary sinus the other visualized paranasal sinuses are clear as are mastoids and middle ears. Orbits are symmetric. Bones: No evidence of fracture or calvarial defect. Other: No scalp contusion is identified. IMPRESSION: 1. No intracranial hemorrhage. 2. Minimal chronic small vessel ischemic change in the bilateral cerebral white matter, as before. RADIA
[2018-10-16 12:00] LABS: INR 2.4 (0.8-1.2); PT - PROTHROMBIN TIME 26.9 secs (9.9-12.6)
[2018-10-16 12:04] LABS: ALBUMIN 3.7 g/dL (3.2-5.5); ALBUMIN/GLOBULIN RATIO 1.3 (1.0-2.2); BILIRUBIN,TOTAL 0.6 mg/dL (0.2-1.0); CALCIUM 9.1 mg/dL (8.5-10.3); CREATININE 0.9 mg/dL (0.6-1.2); TOTAL PROTEIN 6.6 g/dL (6.7-8.2)
--- NOTE | 2018-10-16 12:04 | XRAY Report ---
Reason: Fall with left shoulder injury. Procedure Date: 10/16/2018 Accession Number: [id number] / [id number] Procedure: XR - Shoulder 3 View LT CPT Code: FULL RESULT: EXAM: LEFT SHOULDER RADIOGRAPHY EXAM DATE: 10/16/2018 11:22 AM. CLINICAL HISTORY: Fall with left shoulder injury. COMPARISON: SHOULDER 3 VIEW LT 10/19/2017 12:56 PM. TECHNIQUE: 4 views. FINDINGS: Bones: There is a nondisplaced acute fracture of the greater tuberosity of the left humerus. There is no convincing humeral neck fracture, although this area is somewhat obscured by prominent osteophyte formation at the medial head. There is a screw at the anterior margin of the glenoid fossa, as before. Joints: Moderate narrowing at the glenohumeral joint, as before. Acromioclavicular joint is unremarkable. Soft tissues: The visualized hemithorax is unremarkable. No soft tissue swelling. IMPRESSION: 1. Nondisplaced acute fracture of the greater tuberosity of the left humerus. Such a fracture can be seen with a fall directly onto the shoulder. 2. No definite humeral neck fracture is identified, although the humeral neck is partially obscured by prominent humeral head osteophyte formation. If the fall was not directly onto the shoulder, further assessment could be performed with CT. 3. Moderate chronic left shoulder arthropathy with joint space narrowing. There is a lag screw in the anterior left glenoid margin, as before. RADIA
[2018-10-16] MEDS ORDERED: oxyCODONE 5 MG TABLET PO STA (12:36)
[2018-10-16] MEDS ORDERED: BACITRACIN OINT TOP ONE (12:53)
[2018-10-16 12:55] VITALS: BP 129/77
== END 2018-10-16 12:51 | disposition home or self-care (01) ==
LOC: EDUNIT# → ED 10:39
DX: S42.255A Nondisplaced fracture of greater tuberosity of left humerus, initial encounter for closed fracture (principal); S01.81XA Laceration without foreign body of other part of head, initial encounter; W01.198A Fall on same level from slipping, tripping and stumbling with subsequent striking against other object, initial encounter; Y93.01 Activity, walking, marching and hiking; Y92.002 Bathroom of unspecified non-institutional (private) residence as the place of occurrence of the external cause; Z86.711 Personal history of pulmonary embolism; Z86.718 Personal history of other venous thrombosis and embolism; Z79.01 Long term (current) use of anticoagulants; I10 Essential (primary) hypertension; E11.9 Type 2 diabetes mellitus without complications; Z79.4 Long term (current) use of insulin; J44.9 Chronic obstructive pulmonary disease, unspecified; F17.200 Nicotine dependence, unspecified, uncomplicated
CPT/HCPCS: 12013; 36415; 70450; 73030; 80053; 83690; 85025; 85610; 96374; 99284; A9270

== ENCOUNTER 2018-11-01 09:36 | Outpatient (CLI) | payer MEDICARE | END 2018-11-01 09:37 | disposition home or self-care (01) | LOC: LAB.S 09:36 | PROVIDERS: ATTEND Physician Assistant | DX: I26.99 Other pulmonary embolism without acute cor pulmonale (principal); Z79.01 Long term (current) use of anticoagulants | CPT/HCPCS: 85610 ==

== ENCOUNTER 2018-11-29 12:08 | Outpatient (CLI) | payer MEDICARE | END 2018-11-29 12:09 | disposition home or self-care (01) | LOC: LAB.S 12:08 | PROVIDERS: ATTEND Physician Assistant | DX: I26.99 Other pulmonary embolism without acute cor pulmonale (principal); Z79.01 Long term (current) use of anticoagulants | CPT/HCPCS: 85610 ==

== ENCOUNTER 2018-12-27 14:26 | Outpatient (CLI) | payer MEDICARE ==
--- NOTE | 2018-12-28 11:36 | XRAY Report ---
Reason: PRE OP UMBILICAL HERNIA REPAIR Procedure Date: 12/27/2018 Accession Number: [id number] / [id number] Procedure: XR - Chest 2 View X-Ray CPT Code: 80001 Final Report FULL RESULT: EXAM: CHEST RADIOGRAPHY EXAM DATE: 12/27/2018 02:38 PM. CLINICAL HISTORY: PRE OP UMBILICAL HERNIA REPAIR. COMPARISON: CHEST 1 VIEW 01/26/2018 10:12 AM. TECHNIQUE: 2 views. FINDINGS: Lungs/Pleura: No focal opacities evident. No pleural effusion. No pneumothorax. Normal volumes. Mediastinum: Heart and mediastinal contours are unremarkable. Other: Left scapular/glenoid postoperative changes redemonstrated. IMPRESSION: No acute abnormality of the chest demonstrated. RADIA
== END 2018-12-27 14:27 | disposition home or self-care (01) ==
LOC: DI 14:26
PROVIDERS: ATTEND Surgery
DX: Z01.810 Encounter for preprocedural cardiovascular examination (principal); K42.9 Umbilical hernia without obstruction or gangrene
CPT/HCPCS: 71046; 93005

== ENCOUNTER 2019-01-03 06:44 | Day surgery (SDC) | payer MEDICARE ==
[2019-01-03] MEDS ORDERED: LACTATED RINGERS 1,000 ML IV ONE ×2 (07:09→09:26)
[2019-01-03] MEDS ORDERED: LIDOCAINE MPF 1%-EPI 1:200000 30 ML VIAL ONE (07:16)
[2019-01-03] MEDS ORDERED: BUPIVACAINE 0.5% PF 30 ML VIAL ONE (07:16)
[2019-01-03] MEDS ORDERED: ceFAZolin 1 GM VIAL ONE (07:16)
[2019-01-03] MEDS ORDERED: CEFAZOLIN SODIUM IN 0.9 % NACL 2 GM/100 ML BAG IV ONE (07:37)
--- NOTE | 2019-01-03 07:39 | ANESTHESIA ---
Pre-Anesthesia VS, & Labs - Diagnosis umblical hernia - Procedure umblical hernia repair Vital Signs: Temp Pulse Resp BP Pulse Ox 37.4 C 80 24 140/82 H 93 01/03/19 07:19 01/03/19 07:19 01/03/19 07:19 01/03/19 07:19 01/03/19 07:19 Height 5 ft 6 in Weight (kg) 94.7 kg Body Mass Index 32.1 - Lab Results Current Lab Results: Laboratory Tests 01/03/19 07:21: POC Whole Bld Glucose 175 H Home Medications and Allergies Home Medications: Ambulatory Orders Beclomethasone 80 Mcg [Qvar 80] 2 puffs INH BID 12/27/18 Fluoxetine HCl 40 mg PO DAILY 12/27/18 Rivaroxaban [Xarelto] 20 mg PO DAILY 12/27/18 Tiotropium Br/Olodaterol HCl [Stiolto Respimat Inhal [place]] 2 puffs IH DAILY 12/27/18 Albuterol Sulfate [Proventil Hfa] 2 puffs IH QID PRN 05/02/13 Metoprolol Succinate [Toprol Xl] 25 mg PO BID 05/02/13 Zolpidem [Ambien] 10 mg PO HS PRN 05/06/13 Atorvastatin Calcium [Lipitor] 80 mg PO DAILY 10/21/13 Gabapentin [Neurontin] 2 tab PO QPM 01/15/15 Diazepam 10 tab PO BID PRN 03/30/15 Insulin Detemir [Levemir Flextouch] 21 unit SQ QPM 07/31/15 Beclomethasone 80 Mcg [Qvar 80] 2 puffs INH BID 12/27/18 Fluoxetine HCl 40 mg PO DAILY 12/27/18 Rivaroxaban [Xarelto] 20 mg PO DAILY 12/27/18 Tiotropium Br/Olodaterol HCl [Stiolto Respimat Inhal [place]] 2 puffs IH DAILY 12/27/18 Allergies/Adverse Reactions: Allergies Allergy/AdvReac Type Severity Reaction Status Date / Time No Known Drug Allergies Allergy Verified 01/03/19 07:34 Anes History & Medical History - Anesthetic History Anesthesia Complications: reports: No previous complications Family history of Anesthesia Complications: Denies Family history of Malignant Hyperthermia: Denies - Medical History Cardiovascular: reports: Hypertension, High cholesterol, Deep vein thrombosis, Pulmonary embolism (one in 2015 and other one in 80's. Taking Xeralto stopped xeralto 3 days ago.), Other (denies any history of AL or chest pain/pressure. Reports SOB secondary to COPD) Pulmonary: reports: COPD, Pneumonia, Sleep apnea, CPAP use, Other (Uses o2 with cpapa every night) Gastrointestinal: reports: Colon polyps, Diverticulitis Urinary: reports: None Musculoskeletal: reports: Osteoarthritis Endocrine/Autoimmune: reports: Type 2 diabetes Skin: reports: None Smoking Status: Current every day smoker (1) Psychosocial: reports: Depression, Anxiety - Surgical History General: Cholecystectomy ( 1/2 ppd x 40 years), Colonoscopy, EGD Orthopedic: Other Results - EKG Results EKG Comparison: Reviewed EKG, Normal EKG Exam General: Alert, Oriented x3, Cooperative, No acute distress Dental: Loose/Frag, Other (one bottom tooth loose) Mouth Openin Fingerbreadth Neck Mobility: Normal Mallampati classification: III Thyromental Distance: less than 4 cm Respiratory: Decreased breath sounds, Wheezing, Other Cardiovascular: Regular rate, Normal S1, Normal S2, No murmurs Abdomen: Normal bowel sounds, Soft, No tenderness, No hepatospenomegaly, No masses Extremities: No clubbing, No cyanosis, No edema, Normal pulses, No tenderness/swelling Neurological: Normal gait, Normal speech, Strength at 5/5 X4 ext, Normal tone, Sensation intact, Cranial nerves 3-12 NL, Reflexes 2+ Mental/Cognitive Status: Alert/Oriented X3, Normal for patient Cognitive Status: Within normal limits Plan Anesthesia Type: General Consent for Procedure(s) Verified and Reviewed: Yes Code Status: Attempt Resuscitation ASA classification: 3-Severe systemic disease Is this case an emergency?: No
[2019-01-03] MEDS ORDERED: ALBUTEROL NEB 2.5 MG/3 ML INH ONE (08:09)
[2019-01-03] MEDS ORDERED: IPRATROPIUM/ALBUTEROL 3 ML NEB INH ONE (08:11)
[2019-01-03] MEDS ORDERED: fentaNYL 100 MCG/2 ML VIAL IVP ONE (08:47)
[2019-01-03] MEDS ORDERED: PROPOFOL 200 MG/20 ML VIAL IVP ONE (08:47)
[2019-01-03] MEDS ORDERED: MIDAZOLAM 2 MG/2 ML VIAL IVP ONE (08:47)
[2019-01-03] MEDS ORDERED: ONDANSETRON 4 MG/2 ML VIAL IVP ONE (08:47)
[2019-01-03] MEDS ORDERED: KETOROLAC 30 MG/ML VIAL IVP ONE (08:47)
[2019-01-03] MEDS ORDERED: ACETAMINOPHEN 1,000 MG/100 ML 100 ML IV ONE (08:47)
[2019-01-03] MEDS ORDERED: ePHEDrine 50 MG/ML VIAL IVP ONE (08:47)
[2019-01-03] MEDS ORDERED: LIDOCAINE-MPF 2% 5 ML VIAL IM ONE (08:47)
[2019-01-03] MEDS ORDERED: LIDOCAINE 1%-EPI 1:100000 30 ML MDV SUBQ ONE (09:27)
[2019-01-03] MEDS ORDERED: BUPIVACAINE 0.5% PF 30 ML VIAL SUBQ ONE (09:28)
--- NOTE | 2019-01-03 09:44 | OPERATIVE REPORT ---
Operative Report - General Procedure Date: 01/03/19 Planned Procedure: Umbilical Hernia Repair Pre-Op Diagnosis: Umbilical Hernia Procedure Performed: Umbilical Hernia Repair Post Op Diagnosis: Umbilical Hernia - Procedure Note Primary Surgeon: [place] Anesthesia Provider: WILLIAM Summers Anesthesia Technique: General LMA, Local Pathology: None Estimated Blood Loss (mL): 5 Findings: 4 cm umbilical defect containing preperitoneal fat and peritoneum Complications: none apparent - Other Other Information/Narrative: After obtaining informed consent, the patient is brought to the operating room and placed in the supine position on the operating table. Following successful induction of general anesthesia, appropriate padding of all bony prominences, and placement of appropriate monitors, the abdomen was prepped and draped in the standard surgical fashion. A timeout was held per scope protocol. All elements of the surgical safety checklist were observed before, during, and after the procedure. Following infiltration with local anesthetic to create a field block, an incision was created directly through the umbilicus and carried down through the skin to reveal the hernia sac below. The hernia sac was carefully dissected free from the overlying dermis and underlying fascia using sharp dissection and Bovie cautery. Once the defect was clearly defined, it was determined to be approximately 4 cm in diameter. The peritoneum covered the contents of the hernia sac and was allowed to remain intact in the abdominal cavity. We selected an 8 cm Ventralux patch for repair of the defect.The patch was briefly dipped in Ancef containing solution and then deployed into the defect. It was straightened and flattened in the preperitoneal space. The anterior tags were then trimmed to an appropriate length and sewn to the fascial edges of the defect. The wound was then checked for hemostasis and irrigated with warm saline solution. The umbilicus was reconstructed with 0 Vicryl suture and Monocryl stitches were placed in the skin. All sponge, needle, and instrument counts were correct at the conclusion of the case. The patient was allowed to awake from anesthesia without difficulty and taken to the postanesthesia care unit in good condition.
[2019-01-03] MEDS ORDERED: oxyCODONE 5 MG TABLET PO PRN (09:48)
[2019-01-03] MEDS ORDERED: ACETAMINOPHEN 325 MG TABLET PO PRN (09:48)
[2019-01-03] MEDS ORDERED: IBUPROFEN 600 MG TABLET PO PRN (09:48)
[2019-01-03] MEDS ORDERED: ONDANSETRON 4 MG/2 ML VIAL IVP PRN (09:48)
[2019-01-03] MEDS: HYDROmorphone 1 MG/ML CARPUJECT ONE ×2 (10:00→10:11)
[2019-01-03] MEDS ORDERED: ONDANSETRON 4 MG/2 ML VIAL ONE (10:12)
[2019-01-03] MEDS ORDERED: fentaNYL 100 MCG/2 ML VIAL ONE (10:25)
[2019-01-03] MEDS ORDERED: HYDROmorphone 0.5 MG/0.5 ML SYRINGE ONE (10:25)
[2019-01-03] MEDS ORDERED: oxyCODONE 5 MG TABLET ONE (11:01)
[2019-01-03 11:04] VITALS: BP 90/67
== END 2019-01-03 06:45 | disposition home or self-care (01) ==
LOC: SDS 06:44
PROVIDERS: ATTEND Surgery
PROC: 0WUF0JZ Supplement Abdominal Wall with Synthetic Substitute, Open Approach (ICD-10-PCS; principal; 2019-01-03 08:30)
DX: K42.9 Umbilical hernia without obstruction or gangrene (principal); E11.9 Type 2 diabetes mellitus without complications; J43.9 Emphysema, unspecified; I10 Essential (primary) hypertension; G47.30 Sleep apnea, unspecified; F17.210 Nicotine dependence, cigarettes, uncomplicated; Z79.4 Long term (current) use of insulin; Z86.718 Personal history of other venous thrombosis and embolism; Z86.711 Personal history of pulmonary embolism; Z79.899 Other long term (current) drug therapy; Z79.01 Long term (current) use of anticoagulants; Z79.51 Long term (current) use of inhaled steroids
CPT/HCPCS: 49587; A9270; C1781; J0131; J0690; J1170; J7120

== ENCOUNTER 2019-10-09 11:19 | Emergency (ER) | payer MEDICARE ==
[2019-10-09 11:49] LABS: BASOPHILS % (AUTO) 0.4 %; EOSINOPHILS # (AUTO) 0.1 10^3/uL (0.0-0.7); EOSINOPHILS % (AUTO) 0.7 %; HGB - HEMOGLOBIN 16.5 g/dL (14.0-18.0); LYMPHOCYTES # (AUTO) 2.5 10^3/uL (1.5-3.5); LYMPHOCYTES % (AUTO) 23.2 %; MEAN CORPUSCULAR HEMOGLOBIN 32.2 pg (27.0-31.0); MEAN CORPUSCULAR HGB CONC 32.6 g/dL (32.0-36.0); MEAN CORPUSCULAR VOLUME 98.6 fL (80.0-94.0); MEAN PLATELET VOLUME 10.8 fL (7.4-11.4); MONOCYTES # (AUTO) 0.7 10^3/uL (0.0-1.0); MONOCYTES % (AUTO) 6.2 %; NEUTROPHILS # (AUTO) 7.4 10^3/uL (1.5-6.6); NEUTROPHILS % (AUTO) 68.4 %; PLT - PLATELET COUNT 188 10^3/uL (130-450); RED BLOOD COUNT 5.13 10^6/uL (4.70-6.10); RED CELL DISTRIBUTION WIDTH 12.7 % (12.0-15.0); WHITE BLOOD COUNT 10.8 x10^3/uL (4.8-10.8)
[2019-10-09 11:53] LABS: BILIRUBIN,URINE NEGATIVE (NEGATIVE); GLUCOSE, URINE (UA) NEGATIVE (NEGATIVE); KETONES,URINE (UA) NEGATIVE (NEGATIVE); LEUKOCYTE ESTERASE, URINE NEGATIVE (NEGATIVE); NITRITE,URINE NEGATIVE (NEGATIVE); OCCULT BLOOD,URINE NEGATIVE (NEGATIVE); PH,URINE 6.5 PH (5.0-7.5); PROTEIN,URINE NEGATIVE (NEGATIVE); UROBILINOGEN,URINE 0.2 (NORMAL) E.U./dL (NORMAL)
[2019-10-09 11:58] LABS: CLARITY,URINE CLEAR (CLEAR)
[2019-10-09 12:02] LABS: ALBUMIN/GLOBULIN RATIO 1.3 (1.0-2.2); BILIRUBIN,TOTAL 0.9 mg/dL (0.2-1.0); CALCIUM 9.7 mg/dL (8.5-10.3); CREATININE 0.8 mg/dL (0.6-1.2); TOTAL PROTEIN 7.1 g/dL (6.7-8.2)
[2019-10-09] MEDS ORDERED: HYDROmorphone 1 MG/ML CARPUJECT IVP STA (12:15)
[2019-10-09] MEDS ORDERED: ONDANSETRON 4 MG/2 ML VIAL IVP STA (12:15)
[2019-10-09] MEDS ORDERED: SODIUM CHLORIDE 0.9% 1,000 ML IV STA (12:15)
--- NOTE | 2019-10-09 12:21 | ED Physician Documentation ---
History of Present Illness - Stated complaint Stated Complaint: ABD PX - Chief complaint Chief Complaint: Abd Pain - History obtained from History obtained from: Patient, Family - History of Present Illness Timing: Other (1 month) Pain level max: 10 Pain level now: 10 - Additonal information Additional information: Patient is a 64-year-old male who presents to the emergency department with upper abdominal pain. Worsening over the past month. Has become constant since last night. Only abdominal surgery was an umbilical hernia repair approximately 1 year ago. Some nausea but no vomiting. No diarrhea. No constipation. Nothing makes it better or worse. Does not seem to change with food. He is on chronic oxycodone for pain at home. No blood in the stool. Review of Systems Ten Systems: 10 systems reviewed and negative Constitutional: denies: Fever, Chills Throat: denies: Sore throat Cardiac: denies: Chest pain / pressure, Palpitations Respiratory: denies: Dyspnea, Cough GI: denies: Nausea, Vomiting, Diarrhea, Hematemesis, Bloody / black stool Skin: denies: Rash Musculoskeletal: denies: Neck pain, Back pain PD PAST MEDICAL HISTORY - Past Medical History Cardiovascular: Hypertension, High cholesterol, Deep vein thrombosis, Pulmonary embolism (one in 2014 and other one in 's. Taking Xeralto stopped xeralto 3 days ago.), Other (denies any history of OR or chest pain/pressure. Reports SOB secondary to COPD) Respiratory: COPD, Pneumonia, Sleep apnea, CPAP use, Other (Uses o2 with cpapa every night) Neuro: None Endocrine/Autoimmune: Type 2 diabetes GI: Colon polyps, Diverticulitis : None HEENT: Chronic vision loss, Chronic hearing loss Psych: Depression, Anxiety, Panic attacks, Post traumatic stress disorder Musculoskeletal: Osteoarthritis Derm: None - Past Surgical History Past Surgical History: Yes General: Cholecystectomy ( 1/2 ppd x 40 years), Colonoscopy, EGD Ortho: Other - Present Medications Home Medications: Ambulatory Orders Medication Instructions Recorded Confirmed Albuterol Sulfate [Proventil Hfa 2 puffs IH QID PRN 05/02/13 02/28/19 Inhaler] Gabapentin [Neurontin] 600 mg PO QPM 01/15/15 02/28/19 Insulin Detemir [Levemir Flextouch] 21 unit SQ QPM 07/31/15 02/28/19 Beclomethasone 80 Mcg [Qvar 80] 2 puffs INH BID 12/27/18 02/28/19 Fluoxetine HCl 40 mg PO DAILY 12/27/18 02/28/19 Rivaroxaban [Xarelto] 20 mg PO DAILY 12/27/18 02/28/19 Amox/Clav 875/125 [Augmentin] 1 each PO Q12H #6 tablet 02/28/19 Atorvastatin Calcium [Lipitor] 80 mg PO QPM 02/28/19 02/28/19 Metoprolol Tartrate 50 mg PO BID 02/28/19 02/28/19 Tiotropium Br/Olodaterol HCl 2 puffs INH DAILY 02/28/19 02/28/19 [Stiolto Respimat Inhal [place]] Zolpidem Tartrate [Ambien] 10 mg PO QPM PRN 02/28/19 02/28/19 diazePAM [Diazepam] 10 mg PO BID PRN 02/28/19 02/28/19 oxyCODONE [Roxicodone] 5 mg PO Q4HR PRN #20 tablet 02/28/19 Amox/Clav 875/125 [Augmentin] 1 each PO Q8H #30 tablet 10/09/19 - Allergies Allergies/Adverse Reactions: Allergies Allergy/AdvReac Type Severity Reaction Status Date / Time No Known Drug Allergies Allergy Verified 10/09/19 11:36 - Social History Does the pt smoke?: Yes Smoking Status: Current every day smoker (1) Does the pt drink ETOH?: Yes Does the pt have substance abuse?: No - Immunizations Immunizations are current?: Yes - POLST Patient has POLST: No PD ED PE NORMAL - Vitals Vital signs reviewed: Yes - General General: Alert and oriented X 3, No acute distress - HEENT HEENT: Moist mucous membranes - Neck Neck: Supple, no meningeal sign - Cardiac Cardiac: RRR - Respiratory Respiratory: No respiratory distress, Clear bilaterally - Abdomen Abdomen: Other (Diffusely tender across the upper abdomen, distended. No peritoneal signs. Negative Shelton sign.) - Back Back: No CVA TTP, No spinal TTP - Derm Derm: Warm and dry, No rash - Extremities Extremities: No edema, No calf tenderness / cord - Neuro Neuro: Alert and oriented X 3 - Psych Psych: Normal mood, Normal affect Results - Vitals Vitals: Vital Signs - 24 hr 10/09/19 10/09/1910/08/20 11:29 11:35 14:06 Temperature 36.9 C Heart Rate 74 75 64 Respiratory 20 16 20 Rate Blood Pressure 132/81 H 135/65 H 117/69 O2 Saturation 95 96 94 10/09/19 14:38 Temperature Heart Rate 72 Respiratory 20 Rate Blood Pressure 102/64 O2 Saturation 95 Oxygen O2 Source Room air - Labs Labs: Laboratory Tests 10/09/19 10/09/19 10/09/19 11:42 11:42 11:48 WBC 10.8 RBC 5.13 Hgb 16.5 Hct 50.6 MCV 98.6 H MCH 32.2 H MCHC 32.6 RDW 12.7 Plt Count 188 MPV 10.8 Neut # (Auto) 7.4 H Lymph # (Auto) 2.5 [place] # (Auto) 0.7 Eos # (Auto) 0.1 Baso # (Auto) 0.0 Absolute Nucleated RBC 0.00 Nucleated RBC % 0.0 Sodium 138 Potassium 3.9 Chloride 93 L Carbon Dioxide 30 Anion Gap 15.0 H BUN 11 Creatinine 0.8 Estimated GFR (MDRD) 97 Glucose 197 H Calcium 9.7 Total Bilirubin 0.9 AST 20 ALT 27 Alkaline Phosphatase 83 Total Protein 7.1 Albumin 4.0 Globulin 3.1 Albumin/Globulin Ratio 1.3 Lipase 28 Urine Color YELLOW Urine Clarity CLEAR Urine pH 6.5 Ur Specific [place] <=1.005 Urine Protein NEGATIVE Urine Glucose (UA) NEGATIVE Urine Ketones NEGATIVE Urine Occult Blood NEGATIVE Urine Nitrite NEGATIVE Urine Bilirubin NEGATIVE Urine Urobilinogen 0.2 (NORMAL) Ur Leukocyte Esterase NEGATIVE Ur Microscopic Review NOT INDICATED Urine Culture Comments NOT INDICATED - Rads (name of study) CT abdomen pelvis Radiology: Prelim report reviewed, EMP read contemporaneously, See rad report PD MEDICAL DECISION MAKING - ED course Complexity details: reviewed results, re-evaluated patient, considered differential, d/w patient, d/w family ED course: Patient with mild diffuse colonic wall thickening, will treat as infectious colitis and see if he improves. Will place on Augmentin. Pain well controlled. Has oxycodone at home for pain. Patient is well-appearing, nontoxic. Afebrile. No evidence of ischemic colitis at this time. Patient counseled regarding signs and symptoms for which I believe and urgent re-evaluation would be necessary. Patient with good understanding of and agreement to plan and is comfortable going home at this time This document was made in part using voice recognition software. While efforts are made to proofread this document, sound alike and grammatical errors may occur. 1. Mild diffuse colonic wall thickening as above, concerning for low-grade infectious or inflammatory colitis. No bowel obstruction. No free fluid or free air. Normal appendix. Colonic diverticulosis without evidence of acute diverticulitis. 2. Hepatic steatosis, no discrete hepatic lesion. 3. Left basilar atelectasis. Departure - Departure Disposition: 01 Home, Self Care Clinical Impression: Colitis Condition: Good Instructions: ED Diverticulitis Follow-Up: Dilma Summers PA [Primary Care Provider] - Within 1 week Prescriptions: Amox/Clav 875/125 [Augmentin] 1 each PO Q8H #30 tablet Comments: Take all antibiotics until gone. Return if you worsen. Follow-up with your doctor for further evaluation. It appears that you have an infectious versus inflammatory colitis today on your CAT scan. Discharge Date/Time: 10/09/19 14:42
[2019-10-09] MEDS ORDERED: IOVERSOL 320 50 ML VIAL ONE (12:26)
[2019-10-09] MEDS ORDERED: IOVERSOL 320 100 ML VIAL IVP ONE ×2 (12:26→15:16)
--- NOTE | 2019-10-09 14:06 | CT Report ---
PROCEDURE: Abdomen/Pelvis W INDICATIONS: abd pain, diffuse, distention CONTRAST: IV CONTRAST: Optiray 320 ml: 100 PO CONTRAST: Optiray 320 ml50 TECHNIQUE: After the administration of IV and oral contrast, 5 mm thick sections acquired from the diaphragms to the symphysis. 5 mm thick coronal and sagittal reformats were acquired. For radiation dose reducti on, the following was used: automated exposure control, adjustment of mA and/or kV according to ronald ent size. COMPARISON: CT of pelvis dated 02/27/2019, CT of abdomen and pelvis dated 03/08/2016. FINDINGS: Image quality: Excellent. ABDOMEN: Lung bases: Left basilar atelectasis is seen. No pleural effusion or pneumothorax. Heart size is norm al. Solid organs: Liver and spleen are normal in size. Mild hepatic steatosis is seen, no discrete hepat ic lesion. Gallbladder is within normal limits Biliary system is non dilated. Pancreas enhances nor jaswinder. No adrenal nodules. Kidneys demonstrate normal size and enhancement, without hydronephrosis. 1.1 cm upper pole left renal cyst is seen. Peritoneum and bowel: There is no bowel obstruction. No gastric or small bowel wall thickening. Sugge stion of mild diffuse colonic wall thickening particularly involving mid to distal transverse colon a nd descending colon is seen concerning for low-grade colitis. Appendix is visualized and is within no rmal limits. Mild to moderate colonic diverticulosis is seen, no CT evidence of acute diverticulitis. No free fluid or free air. Nodes and vessels: No retroperitoneal or mesenteric adenopathy by size criteria. Aorta and inferior vena cava are normal in size. Mild to moderate atherosclerotic disease is seen. Miscellaneous: No ventral hernias. PELVIS: Genitourinary: Bladder wall thickness is normal. Miscellaneous: No inguinal hernias or adenopathy. Bones: No suspicious bony lesions. No vertebral body compression fractures. IMPRESSION: 1. Mild diffuse colonic wall thickening as above, concerning for low-grade infectious or inflammatory colitis. No bowel obstruction. No free fluid or free air. Normal appendix. Colonic diverticulosis wi thout evidence of acute diverticulitis. 2. Hepatic steatosis, no discrete hepatic lesion. 3. Left basilar atelectasis. Reviewed by: Cassius Nur MD on 10/09/2019 2:04 PM PDT Approved by: Cassius Nur MD on 10/09/2019 2:04 PM PDT Station ID: [id number]
[2019-10-09 14:38] VITALS: BP 102/64
[2019-10-09] MEDS ORDERED: IOVERSOL 320 50 ML VIAL PO ONE (15:15)
== END 2019-10-09 14:42 | disposition home or self-care (01) ==
LOC: ED 11:19
DX: K52.9 Noninfective gastroenteritis and colitis, unspecified (principal); I10 Essential (primary) hypertension; E11.9 Type 2 diabetes mellitus without complications; Z79.4 Long term (current) use of insulin; J44.9 Chronic obstructive pulmonary disease, unspecified; F17.200 Nicotine dependence, unspecified, uncomplicated
CPT/HCPCS: 36415; 74177; 80053; 81003; 83690; 85025; 96374; 99284; J1170; Q9967; 81001; 87086